=== PATIENT | male | born 1940 | race Two or more races ===

== ENCOUNTER 2017-04-11 22:23 | Inpatient (IN) | payer MEDICARE, BC ==
[~2017-04-11] VITALS: Ht 157.5 cm; Wt 61.2 kg
[2017-04-11 23:10] LABS: BASOPHILS % 0.4 % (0.0-2.0); EOSINOPHILS % 3.5 % (0.0-5.0); HEMATOCRIT. 44.8 % (42.0-52.0); HEMOGLOBIN. 14.8 g/dL (14.0-18.0); LYMPHOCYTES % 15.3 % (20.0-50.0); MEAN CORPUSCULAR VOLUME 93.8 fL (80.0-94.0); MONOCYTES % 5.8 % (2.0-8.0); PLATELET 118 x1000/uL (130-400); RED BLOOD CELL COUNT 4.77 mill/uL (4.7-6.1); RED CELL DISTRIBUTION WIDTH 13.9 % (11.6-14.6)
[2017-04-11 23:16] LABS: CHLORIDE 107 mEq/L (98-107)
[2017-04-11 23:19] LABS: CARBON DIOXIDE 23 mEq/L (21-32)
[2017-04-11 23:22] LABS: ETHANOL BLOOD < 10 mg/dL
[2017-04-11 23:27] LABS: TROPONIN I < 0.02 ng/mL (0.00-0.04)
[2017-04-12] MEDS ORDERED: SODIUM CHLORIDE 0.9% 1,000 ML IV SCH (00:20)
[2017-04-12] MEDS ORDERED: DOCUSATE SODIUM 100MG CAPSULE PO PRN (03:30)
[2017-04-12] MEDS ORDERED: ACETAMINOPHEN 325MG TABLET PO PRN (03:30)
[2017-04-12] MEDS ORDERED: IPRATROPIUM/ALBUTEROL 0.5-3(2.5)MG/3ML NEB INH PRN (03:30)
[2017-04-12] MEDS ORDERED: ONDANSETRON HCL 4MG/2ML VIAL IV PRN (03:30)
[2017-04-12] MEDS ORDERED: GUAIFENESIN 200MG/10ML SUGAR FREE UDC PO PRN (03:30)
[2017-04-12 06:46] LABS: CLARITY URINE CLEAR (CLEAR); COLOR URINE YELLOW (YELLOW); KETONES URINE NEGATIVE (NEGATIVE); LEUKOCYTE ESTERASE URINE NEGATIVE (NEGATIVE); NITRITE URINE NEGATIVE (NEGATIVE); OCCULT BLOOD URINE NEGATIVE (NEGATIVE); PH URINE 5.5 (4.5-8.0); PROTEIN URINE 1+ (NEGATIVE); UROBILINOGEN URINE 0.2 E.U./dL (0.2-1.0)
[2017-04-12 07:26] LABS: *AMPHETAMINES SCREEN URINE NEGATIVE (NEGATIVE); *BARBITURATES SCREEN URINE NEGATIVE (NEGATIVE); *BENZODIAZEPINES SCREEN URINE NEGATIVE (NEGATIVE); *COCAINE SCREEN URINE NEGATIVE (NEGATIVE); CANNABINOID URINE SCREEN NEGATIVE (NEGATIVE); METHADONE URINE SCREEN NEGATIVE (NEGATIVE); OPIATES URINE SCREEN NEGATIVE (NEGATIVE); PHENCYCLIDINE URINE SCREEN NEGATIVE (NEGATIVE)
[2017-04-12] MEDS ORDERED: BENA40TA66 PO (08:30)
[2017-04-12] MEDS ORDERED: METF500T4 PO (08:30)
[2017-04-12] MEDS ORDERED: LEVVL SQ (08:30)
[2017-04-12] MEDS ORDERED: AMLO2.5T2 PO (08:30)
[2017-04-12 08:40] VITALS: BP 131/75
[2017-04-12] MEDS ORDERED: DEXTROSE 50% WATER 50ML SYRINGE IV PRN (08:45)
[2017-04-12] MEDS: ENOXAPARIN 40MG/0.4ML SYR SUBCUT SCH (09:00)
[2017-04-12] MEDS: ASPIRIN 81MG EC TABLET PO SCH (09:30)
[2017-04-12] MEDS: AMLODIPINE 10MG TABLET PO SCH (09:30)
[2017-04-12] MEDS: INSULIN LISPRO 100 UNITS/ML SUBCUT SCH ×4 (09:38→21:32)
[2017-04-12] MEDS: DEXT 5%/0.45% NACL 1000ML 1,000 ML IV SCH ×2 (09:58→16:40)
[2017-04-12 10:23] VITALS: BP 131/75
[2017-04-12 11:30] VITALS: BP 121/59
[2017-04-12] MEDS: BLOOD SUGAR DIAGNOSTIC STRIP TEST SCH ×3 (11:52→21:00)
[2017-04-12] MEDS ORDERED: ATOR10TA69 PO (15:12)
[2017-04-12] MEDS ORDERED: CARV3.1242 PO (15:12)
[2017-04-12 15:58] VITALS: BP 109/57
[2017-04-12 20:00] VITALS: BP 128/61
[2017-04-12 22:00] VITALS: BP 122/63
[2017-04-13] VITALS: BP 112/53
[2017-04-13 04:00] VITALS: BP 129/69
[2017-04-13] MEDS: BLOOD SUGAR DIAGNOSTIC STRIP TEST SCH (07:01)
[2017-04-13 07:18] LABS: BASOPHILS % 0.7 % (0.0-2.0); EOSINOPHILS % 5.8 % (0.0-5.0); HEMATOCRIT. 41.6 % (42.0-52.0); LYMPHOCYTES % 39.7 % (20.0-50.0); MEAN CORPUSCULAR HEMOGLOBIN 31.3 pg (28.0-32.0); MEAN CORPUSCULAR VOLUME 92.7 fL (80.0-94.0); MEAN PLATELET VOLUME 10.5 fl (7.4-10.4); MONOCYTES % 6.8 % (2.0-8.0); PLATELET 118 x1000/uL (130-400); RED BLOOD CELL COUNT 4.48 mill/uL (4.7-6.1); RED CELL DISTRIBUTION WIDTH 13.8 % (11.6-14.6)
[2017-04-13 08:00] VITALS: BP 129/68
[2017-04-13] MEDS: ASPIRIN 81MG EC TABLET PO SCH (08:37)
[2017-04-13] MEDS: AMLODIPINE 10MG TABLET PO SCH (08:37)
[2017-04-13] MEDS: INSULIN LISPRO 100 UNITS/ML SUBCUT SCH (08:43)
[2017-04-13] MEDS: ENOXAPARIN 40MG/0.4ML SYR SUBCUT SCH (09:00)
[2017-04-13 09:07] LABS: CHLORIDE 112 mEq/L (98-107)
[2017-04-13 09:30] LABS: CARBON DIOXIDE 24 mEq/L (21-32)
[2017-04-13 11:25] VITALS: BP 129/78
== END 2017-04-13 11:40 | disposition home or self-care (01) | DRG 638 ==
LOC: ER 22:24 → 6WST 04-12 00:22 → SUPCPDRO 04-12 03:19 → EDBEDREQ 04-12 06:07 → ENRESERV 04-12 06:59
PROVIDERS: ADMIT Hospitalist; ATTEND Hospitalist
DX: E11.649 Type 2 diabetes mellitus with hypoglycemia without coma (principal); E44.0 Moderate protein-calorie malnutrition; E11.65 Type 2 diabetes mellitus with hyperglycemia; I10 Essential (primary) hypertension; I25.10 Atherosclerotic heart disease of native coronary artery without angina pectoris; E78.5 Hyperlipidemia, unspecified; Z79.4 Long term (current) use of insulin; Z86.73 Personal history of transient ischemic attack (TIA), and cerebral infarction without residual deficits; Z68.24 Body mass index [BMI] 24.0-24.9, adult
CPT/HCPCS: 36415; 70450; 80053; 80305; 81001; 82962; 83880; 84443; 84484; 85025; 93005; 93970; 97162; 97165; 99285; G0482; J1650; J1815; J7030